=== PATIENT | female | born 1995 | race African-American/Black ===

== ENCOUNTER 2022-11-06 09:20 | Emergency (ER) | payer OTHER, SELFPAY ==
[2022-11-06] VITALS (16 sets, daily range): BP systolic 126–131; BP diastolic 93–100; PULSE 53–83; RESP 9–24; TEMP 36.6; O2SAT 98–100; BMI 41.1
--- NOTE | 2022-11-06 09:45 | ECG_ITS ---
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
--- NOTE | 2022-11-06 09:45 | XR_ITS ---
[address] [address] Patient Name: CHANO AMAYA MRN: [id number] date: 1995 Sex: F Assigned Patient Location: ED.MAIN Current Patient Location: ED.MAIN Accession/Order Number: [id number] Exam Date: 11/06/2022 10:20 Report Date: 11/06/2022 10:40 At the request of: DAVID BUITRAGO Procedure: XR chest 1V Exam: Radiographs: XR chest 1V Reason for exam: chest pain Comparison: None XR/XR chest 1V IMPRESSION: Unremarkable chest x-ray. Electronically authenticated by: MILTON SLAUGHTER Date: 11/06/2022 10:40
--- NOTE | 2022-11-06 09:52 | ED.CHESTPAI1 ---
HPI - Chest Pain General Chief Complaint: Chest Pain Stated Complaint: CHEST PAIN Time Seen by Provider: 11/06/22 09:41 Source: patient Mode of arrival: walk-in Limitations: no limitations History of Present Illness HPI narrative: 27-year-old female presents for chest pain. It started yesterday and it's in her left upper chest. It's been intermittent and seems to go to her shoulder blade. No trauma or unusual activity. She was at a store when it started. She doesn't complain of cough or shortness breath or abdominal pain. She has a history of anxiety but she states this feels different. Related Data Home Medications Medication Instructions Recorded Confirmed No Known Home Medications 11/06/22 11/06/22 Allergies Allergy/AdvReac Type Severity Reaction Status Date / Time No Known Drug Allergies Allergy Verified 11/06/22 09:32 Review of Systems ROS Narrative A ten point review of systems is negative except as noted above. [facility] Medical History (Updated 11/06/22 @ 11:13 by Austyn Yañez MD) Surgical History (Updated 11/06/22 @ 09:38 by Kasi Lewis) Social History Smoking status: Never smoker Exam Narrative Exam Narrative: Nurses note and vital signs reviewed and patient is not hypoxic. General: The patient appears well and in no apparent distress. Patient is resting comfortably on cart. Skin: Warm, dry, no pallor noted. There is no rash noted. Head: Normocephalic, atraumatic Eye: Normal conjunctiva, no drainage Ears, Nose, Mouth, and Throat: oral mucosa is moist. Nares patent. a Cardiovascular: Regular Rate and Rhythm Respiratory: Patient is in no distress, no accessory muscle use, lungs are clear to auscultation, no wheezing, rales or rhonchi Back: non-tender GI: soft and nontender Musculoskeletal: The patient has no evidence of calf tenderness, no pitting edema, symmetrical pulses noted bilaterally Neurological: A&O, normal speech Psychiatric: Cooperative Constitutional Vital Signs, click to edit/add: Last Vital Signs Temp 97.9 F 11/06/22 09:33 Pulse 73 11/06/22 09:33 Resp 16 11/06/22 09:33 BP 131/93 H 11/06/22 09:33 Pulse Ox 98 11/06/22 09:38 O2 Del Method Room Air 11/06/22 09:38 Course Vital Signs Vital signs: Vital Signs Temperature 97.9 F 11/06/22 09:33 Pulse Rate 73 11/06/22 09:33 Respiratory Rate 16 11/06/22 09:33 Blood Pressure 131/93 H 11/06/22 09:33 Pulse Oximetry 99 11/06/22 09:33 Temperature 97.9 F 11/06/22 09:33 Pulse Rate 73 11/06/22 09:33 Respiratory Rate 16 11/06/22 09:33 Blood Pressure 131/93 H 11/06/22 09:33 Pulse Oximetry 98 11/06/22 09:38 Oxygen Delivery Method Room Air 11/06/22 09:38 MDM - Chest Pain MDM Narrative Medical decision making narrative: the patient's workup is negative including d-dimer, troponin, chest x-ray. My clinical impression is that this is chest wall pain. At this point I do not suspect acute coronary syndrome. Treatment diagnosis and follow-up were discussed with the patient. Differential Diagnosis Differential diagnosis: Likely pneumothorax, atypical chest pain, st elevation myocardial infarction, costochondritis and chest pain Lab Data Attestation: I reviewed the patient's lab results. Labs: Lab Results 11/06/22 Range/Units 09:53 WBC 7.8 (4.0-11.0) 10^3/uL RBC 4.35 (4.20-5.40) 10^6/uL Hgb 13.1 (12.0-16.0) g/dL Hct 39.6 (36.0-48.0) % MCV 91.0 (81.0-99.0) fL MCH 30.1 (26.7-34.0) pg MCHC 33.1 (29.9-35.2) g/dL RDW 13.1 (11.0-15.0) % Plt Count 291 (150-450) 10^3/uL MPV 9.6 (9.5-13.5) fL Neut % (Auto) 58.5 (43.0-75.0) % Lymph % (Auto) 31.5 (20.5-60.0) % [place] % (Auto) 6.9 (1.7-12.0) % Eos % (Auto) 2.1 (0.9-7.0) % Baso % (Auto) 0.6 (0.2-2.0) % Neut # (Auto) 4.6 (1.4-6.5) 10^3/uL Lymph # (Auto) 2.5 (1.2-3.8) 10^3/uL [place] # (Auto) 0.5 (0.3-0.8) 10^3/uL Eos # (Auto) 0.2 (0.0-0.7) 10^3/uL Baso # (Auto) 0.1 (0.0-0.1) 10^3/uL Abs Immat Gran (auto) 0.03 (0.00-0.03) 10^3/uL Imm/Tot Granulo (auto) 0.4 (0.0-0.5) % D-Dimer 0.21 (<=0.59) mg/L FEU Sodium 141 (136-145) mmol/L Potassium 3.9 (3.5-5.1) mmol/L Chloride 103 (98-107) mmol/L Carbon Dioxide 29.6 (21.0-32.0) mmol/L Anion Gap 12.3 BUN 9.0 (7.0-18.0) mg/dL Creatinine 0.77 (0.55-1.02) mg/dL Est GFR ( Amer) >60 (>=60) Est GFR (Non-Af Amer) >60 (>=60) BUN/Creatinine Ratio 11.7 Glucose 88 (74-106) mg/dL Calcium 8.9 (8.5-10.1) mg/dL Troponin I High Sens 5.2 (4.0-51.3) pg/mL NT-Pro-B Natriuret Pep 52.0 (<=450.0) pg/mL Imaging Data Chest x-ray: Radiologist's impression: Procedure: XR chest 1V Exam: Radiographs: XR chest 1V Reason for exam: chest pain Comparison: None IMPRESSION: Unremarkable chest x-ray. Electronically authenticated by: MILTON SLAUGHTER Date: 11/06/2022 10:40 Discharge Plan Discharge Chief Complaint: Chest Pain Clinical Impression: Chest wall pain Patient Disposition: Home, Self-Care Time of Disposition Decision: 11:11 Condition: Good Mode of Transportation: Private Vehicle Prescriptions / Home Meds: No Action No Known Home Medications Instructions: Chest Wall Pain (ED) Stand Alone Forms: Portal Instructions Referrals: DEDRA OLIVEIRA [Primary Care Provider] - 1 week
[2022-11-06 10:42] LABS: Basophils Absolute Auto 0.1 10^3/uL (0.0-0.1); Basophils Percent Auto 0.6 % (0.2-2.0); Eosinophils Absolute Auto 0.2 10^3/uL (0.0-0.7); Eosinophils Percent Auto 2.1 % (0.9-7.0); Hematocrit 39.6 % (36.0-48.0); Hemoglobin 13.1 g/dL (12.0-16.0); Immature Granulocytes Abs Auto 0.03 10^3/uL (0.00-0.03); Immature Granulocytes Pct Auto 0.4 % (0.0-0.5); Lymphocytes Absolute Auto 2.5 10^3/uL (1.2-3.8); Lymphocytes Percent Auto 31.5 % (20.5-60.0); Mean Corpuscular HGB Conc 33.1 g/dL (29.9-35.2); Mean Corpuscular Hemoglobin 30.1 pg (26.7-34.0); Mean Platelet Volume 9.6 fL (9.5-13.5); Monocytes Absolute Auto 0.5 10^3/uL (0.3-0.8); Monocytes Percent Auto 6.9 % (1.7-12.0); Neutrophils Absolute Auto 4.6 10^3/uL (1.4-6.5); Neutrophils Percent Auto 58.5 % (43.0-75.0); Platelet Count 291 10^3/uL (150-450); Red Blood Count 4.35 10^6/uL (4.20-5.40); Red Cell Distribution Width 13.1 % (11.0-15.0); White Blood Count 7.8 10^3/uL (4.0-11.0)
[2022-11-06 10:51] LABS: D Dimer 0.21 mg/L FEU (<=0.59)
[2022-11-06 10:59] LABS: Anion Gap 12.3; BUN Creatinine Ratio 11.7; Calcium 8.9 mg/dL (8.5-10.1); Carbon Dioxide 29.6 mmol/L (21.0-32.0); Chloride 103 mmol/L (98-107); Estimated GFR (African America >60 (>=60); Estimated GFR (Non-African Ame >60 (>=60); Glucose 88 mg/dL (74-106); Potassium 3.9 mmol/L (3.5-5.1); Sodium 141 mmol/L (136-145); Troponin I High Sensitivity 5.2 pg/mL (4.0-51.3)
== END 2022-11-06 11:32 | disposition home or self-care (01) ==
PROVIDERS: Emergency Provider Emergency Medicine; PCP Family Medicine
DX: R07.89 Other chest pain (principal)
CPT/HCPCS: 36415; 71045; 80048; 83880; 84484; 85025; 85378; 93005; 99285